=== PATIENT | female | born 2000 | race Asian ===

== ENCOUNTER 2024-07-03 12:22 | Emergency (ER) | payer OTHER ==
[2024-07-03 12:45] VITALS: BP 101/67; PULSE 89; RESP 18; TEMP 98.6; BMI 19.3
[2024-07-03 14:16] LABS: HCG,QUALITATIVE URINE Positive
[2024-07-03 14:17] LABS: BASO % 0.6 % (0-2.0); EOS % 0.7 % (0-4.5); HEMATOCRIT 36.3 % (32.4-45.2); HEMOGLOBIN 11.9 GM/dL (10.7-15.3); LYMPH % 43.8 % (8-40); MCH 28.5 pg (25.7-33.7); MCHC 32.9 g/dl (32.0-36.0); MEAN CELL VOLUME 86.5 fl (80-96); MEAN PLT VOLUME 8.4 fl (7.5-11.1); NEUT % 45.9 % (42.8-82.8); PLATELET COUNT 279 10^3/uL (134-434); RBC 4.19 M/mm3 (3.60-5.2); RDW 14.8 % (11.6-15.6); WHITE BLOOD COUNT 10.3 K/mm3 (4.0-10.0)
[2024-07-03 14:17] LABS: URINE APPEARANCE CLEAR; URINE BILIRUBIN NEGATIVE (NEGATIVE); URINE COLOR YELLOW; URINE GLUCOSE (UA) NEGATIVE (NEGATIVE); URINE KETONE NEGATIVE (NEGATIVE); URINE LEUK ESTERASE NEGATIVE (NEGATIVE); URINE NITRITE NEGATIVE (NEGATIVE); URINE PROTEIN NEGATIVE (NEGATIVE)
[2024-07-03 14:58] LABS: BLOOD UREA NITROGEN 8.1 mg/dL (7-18)
[2024-07-03 15:01] LABS: CREATININE 0.5 mg/dL (0.55-1.3)
[2024-07-03 15:02] LABS: BILIRUBIN,TOTAL 0.4 mg/dL (0.2-1)
[2024-07-03 15:03] LABS: TOT PROT 7.8 g/dl (6.4-8.2)
== END 2024-07-03 17:08 | disposition home or self-care (01) ==
LOC: JER 12:22
DX: O26.891 Other specified pregnancy related conditions, first trimester (principal); R10.84 Generalized abdominal pain; R11.0 Nausea; Z3A.00 Weeks of gestation of pregnancy not specified
CPT/HCPCS: 36415; 76817-TC; 80053; 81003; 84702; 84703; 85025; 86850; 86900; 86901; 87086; 99284-25